=== PATIENT | female | born 1960 | race Two or more races ===

== ENCOUNTER → 2017-02-28 | Outpatient (CLI) | payer OTHER ==
[~2017-02-28] MED LIST: IOPAMIDOL 370 MG/ML 200 ML INFUS..BTL INJ ONE; SODIUM CHLORIDE 0.9% 50ML 50 ML ONE
[2017-02-28 11:49] LABS: BLOOD UREA NITROGEN 15 mg/dL (7-26); BUN/CREATININE RATIO 20 (6-25); CREATININE, SERUM 0.76 mg/dL (0.57-1.11); EST GLOMERULAR FILTRATION RATE > 60 ML/MIN (60-)
--- NOTE | 2017-02-28 13:29 | Diagnostic Imaging Report ---
PROCEDURE:CT ABDOMEN W COMPARISON:None. INDICATIONS:Liver cyst TECHNIQUE: Routine protocol volumetric CT abdomen after ministration of 100 mL Isovue-370 intravenous contrast and 900 mL enteric water. Multiplanar reformatted images. DLP: 166.69 FINDINGS: Clear lung bases. No pleural effusions. Normal heart size. Liver: 1 cm low attenuation nodule within segment 2 with an internal attenuation measuring between 13 and 25 Hounsfield units. There is questionable nodularity or septation along the medial margin (as seen on image 35, series 302). Midclavicular craniocaudal span 13.3 cm. Diffuse low attenuation relative to spleen (average 98 HU compared to 177 HU respectively). Gallbladder: Normal Pancreas: Normal Spleen: Normal Adrenal glands: Normal Kidneys: Normal Bowel: Image segments are normal. Peritoneum: Normal Vasculature: Normal caliber. Mild aortic atherosclerosis. Lymph nodes: Normal Skeleton: Normal lumbarization of S1. Soft tissues: Surgical mesh along the ventral abdomen with rectus abdominis status stasis and atrophy. CONCLUSION: 1. The 1 cm low-attenuation nodule in the left lobe of the liver demonstrates questionable internal septation versus nodularity. While this cannot be defined as a simple cyst its overall appearance suggests benign etiology warranting followup. 2. Followup liver protocol MRI is recommended in 3 months to determine stability and allow for additional characterization. Dictated by: Jun White M.D. on 02/28/2017 at 13:37 Electronically approved by: Jun White M.D. on 02/28/2017 at 13:37
== END ==
LOC: CT 10:37
PROVIDERS: ATTEND Internal Medicine Gastroenterology
DX: K76.89 Other specified diseases of liver (principal); R93.5 Abnormal findings on diagnostic imaging of other abdominal regions, including retroperitoneum
CPT/HCPCS: 36415; 74160; 82565; 84520; Q9967